=== PATIENT | male | born 1980 | race Caucasian/White ===

== ENCOUNTER 2016-11-29 18:57 | Emergency (ER) | payer OTHER ==
[2016-11-29] MEDS ORDERED: Ketorolac INJ* 60 MG/2 ML VIAL IM ONE (20:39)
--- NOTE | 2016-11-29 21:15 | RAD ---
INDICATION: Left ankle injury COMPARISON: None TECHNIQUE: AP, lateral, and oblique views were obtained. FINDINGS: There is no acute fracture or dislocation. There is lateral soft tissue swelling. IMPRESSION: NO ACUTE FRACTURE.
--- NOTE | 2016-11-29 21:29 | UC ---
Lower Extremity/Ankle HPI - HPI Summary HPI Summary: rolled ankle (inverted foot) at work a few hours ago. [place] and heard a "pop". No prior ankle injuries. Hard to bear weight since then. - History of Current Complaint Chief Complaint: UCLowerExtremity Stated Complaint: LT ANKLE INJURY Time Seen by Provider: 11/29/16 20:35 Hx Obtained From: Patient, Family/Electrical Service Technician - son Onset/Duration: Sudden Onset, Lasting Hours - 3 Severity Initially: Moderate Severity Currently: Moderate Aggravating Factor(s): Ambulation Alleviating Factor(s): Rest, Elevation Able to Bear Weight: Yes - with assistance - Risk Factors Gout Risk Factors: Negative DVT Risk Factors: Negative Septic Arthritis Risk Factor: Negative - Allergies/Home Medications Allergies/Adverse Reactions: Allergies Allergy/AdvReac Type Severity Reaction Status Date / Time Ibuprofen [From Motrin] Allergy GI Upset Verified 11/29/16 20:36 Home Medications: Home Medications Anxiety Med 1 dose PO DAILY 11/29/16 [History Confirmed 11/29/16] Arthritis Med 1 dose PO DAILY 11/29/16 [History Confirmed 11/29/16] Cholesterol Med 1 dose PO DAILY 11/29/16 [History Confirmed 11/29/16] Med For Gerd 1 dose PO DAILY 11/29/16 [History Confirmed 11/29/16] PMH/Surg Hx/FS Hx/Imm Hx Previously Healthy: Yes - Surgical History Surgical History: Yes Surgery Procedure, Year, and Place: right shoulder - Family History Known Family History: Negative: Respiratory Disease, Seizure Disorder - Social History Occupation: Employed Full-time Lives: With Family Alcohol Use: Occasionally Substance Use Type: None Smoking Status (MU): Former Smoker Review of Systems Constitutional: Negative Skin: Negative Eyes: Negative ENT: Negative Respiratory: Negative Cardiovascular: Negative Gastrointestinal: Negative Genitourinary: Negative Motor: Negative Neurovascular: Negative Musculoskeletal: Arthralgia, Decreased ROM, Edema, Myalgia Neurological: Negative Psychological: Negative All Other Systems Reviewed And Are Negative: Yes Physical Exam Triage Information Reviewed: Yes Appearance: Well-Appearing, No Pain Distress, Well-Nourished Vital Signs: Initial Vital Signs Temp 98.7 F 11/29/16 20:32 Pulse 107 11/29/16 20:32 Resp 16 11/29/16 20:32 BP 119/82 11/29/16 20:32 Pulse Ox 100 11/29/16 20:32 Vital Signs Reviewed: Yes Eye Exam: Normal Neck exam: Normal Respiratory Exam: Normal Cardiovascular Exam: Normal Musculoskeletal Exam: Other - swelling over left lateral malleolus. Tenderness, bruising. LImited ROM. Neurological Exam: Normal Psychological Exam: Normal Skin Exam: Normal Diagnostics - Laboratory Diagnostic Studies Completed/Ordered: xray ankle: neg Lower Extremity Course/Dx - Differential Dx/Diagnosis Differential Diagnosis/HQI/PQRI: Fracture (Closed), Sprain Provider Diagnoses: ankle sprain Discharge - Discharge Plan Condition: Stable Disposition: HOME Prescriptions: Tramadol HCl [Ultram] 1 - 2 tab PO Q6HR PRN #20 tab MDD 6 tab PRN Reason: Pain Patient Education Materials: Ankle Sprain (ED), Ankle Stirrup Splint (ED) Additional Instructions: Use the cane until you can weight bear comfortably without it. Wear the splint ( or some other ankle support) for 4-6 weeks to protect it while it's healing. It will feel pretty good in a week, but it will be prone to re-injury.
== END 2016-11-29 21:48 | disposition home or self-care (01) ==
LOC: UCCORT 18:57
DX: S93.402A Sprain of unspecified ligament of left ankle, initial encounter (principal); X50.1XXA Overexertion from prolonged static or awkward postures, initial encounter; Y93.9 Activity, unspecified; Y92.89 Other specified places as the place of occurrence of the external cause; Y99.0 Civilian activity done for income or pay; Z88.6 Allergy status to analgesic agent; Z87.891 Personal history of nicotine dependence
CPT/HCPCS: 96372; 99203; G0463; J1885